=== PATIENT | male | born 1995 | race Caucasian/White ===

== ENCOUNTER → 2017-11-11 | Outpatient (CLI) | payer OTHER | LOC: BMCIMAGING 14:57 | PROVIDERS: ATTEND Orthopaedic Surgery Hand Surgery | DX: S42.021D Displaced fracture of shaft of right clavicle, subsequent encounter for fracture with routine healing (principal) ==

== ENCOUNTER → 2017-12-10 | Outpatient (CLI) | payer OTHER | LOC: BMCIMAGING 14:36 | PROVIDERS: ATTEND Orthopaedic Surgery Hand Surgery | DX: S42.021A Displaced fracture of shaft of right clavicle, initial encounter for closed fracture (principal) ==

== ENCOUNTER → 2018-01-02 | Outpatient (CLI) | payer OTHER | LOC: BMCIMAGING 14:35 | PROVIDERS: ATTEND Orthopaedic Surgery Hand Surgery | DX: S42.021D Displaced fracture of shaft of right clavicle, subsequent encounter for fracture with routine healing (principal) ==

== ENCOUNTER → 2018-02-03 | Outpatient (CLI) | payer OTHER | LOC: BMCIMAGING 09:35 | PROVIDERS: ATTEND Orthopaedic Surgery Hand Surgery | DX: S42.021D Displaced fracture of shaft of right clavicle, subsequent encounter for fracture with routine healing (principal) ==

== ENCOUNTER → 2018-02-26 | Outpatient (CLI) | payer OTHER | LOC: BMCIMAGING 09:22 | PROVIDERS: ATTEND Orthopaedic Surgery Hand Surgery | DX: M25.561 Pain in right knee (principal) ==